=== PATIENT | male | born 1965 | race Caucasian/White ===

== ENCOUNTER 2018-04-22 08:37 | Emergency (ER) | payer OTHER ==
[~2018-04-22] VITALS: Ht 193 cm; Wt 148.0 kg
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
--- NOTE | 2018-04-22 09:08 | NUR ---
PT TAKEN TO CT.
--- NOTE | 2018-04-22 10:05 | NUR ---
Patient discharged to home in stable condition. Written and verbal after care instructions given. Patient verbalizes understanding of instruction.
[2018-04-22 10:41] VITALS: BP 149/95
== END 2018-04-22 10:42 | disposition home or self-care (01) ==
LOC: ER 08:40
DX: S13.4XXA Sprain of ligaments of cervical spine, initial encounter (principal); S09.8XXA Other specified injuries of head, initial encounter; E11.9 Type 2 diabetes mellitus without complications; I10 Essential (primary) hypertension; G47.30 Sleep apnea, unspecified; Z60.2 Problems related to living alone; V89.2XXA Person injured in unspecified motor-vehicle accident, traffic, initial encounter; Y93.89 Activity, other specified; Y92.410 Unspecified street and highway as the place of occurrence of the external cause; Y99.8 Other external cause status
CPT/HCPCS: 70450; 71045; 72125; 99284; A4606; Z7610